=== PATIENT | female | born 1990 | race American Indian/Alaskan Native ===

== ENCOUNTER 2020-11-18 09:20 | Emergency (ER) | payer MEDICAID ==
[2020-11-18 10:11] VITALS: BP 142/91
--- NOTE | 2020-11-18 11:11 | Emergency Department Report ---
ED General Adult HPI - General Chief complaint: Headache Stated complaint: HEADACHE/SORE THROAT Time Seen by Provider: 11/18/20 10:40 Source: patient Mode of arrival: Ambulatory Limitations: No Limitations - History of Present Illness Initial comments: This is a pleasant 30-year-old female presents the emergency department with a chief complaint of sore throat, right-sided headache, "it feels like I have strep throat.", Right ear pain, malaise and subjective fever. She reports she has had strep throat in the past and this feels similar. She denies any known past medical history, current medication use or known allergies to medications. She denies any sick contacts, recent travel or immobilization. She denies associated chills, dizziness, blurry vision, nausea, vomiting, diarrhea, chest pain, shortness of breath, weakness, loss of taste or smell or any other associated symptoms. - Related Data Previous Rx's Medication Instructions Recorded Last Taken Type Amoxicillin [Trimox CAP] 500 mg PO Q8H #30 capsule 11/18/20 Unknown Rx Butalb/Acetaminophen/Caffeine 1 cap PO Q8HR PRN #12 cap 11/18/20 Unknown Rx [Fioricet 50-300-40 mg CAP] Nystas/Diphen/Xyl Visc/Mylanta 30 ml MM Q4H PRN #120 ml 11/18/20 Unknown Rx [Magic Mouthwash] Allergies Allergy/AdvReac Type Severity Reaction Status Date / Time No Known Allergies Allergy Unverified 11/18/20 10:07 ED Review of Systems ROS: Stated complaint: HEADACHE/SORE THROAT Other details as noted in HPI Comment: All other systems reviewed and negative Constitutional: denies: chills, fever Eyes: denies: eye pain, eye discharge, vision change ENT: as per HPI, throat pain. denies: ear pain Respiratory: denies: cough, shortness of breath, wheezing Cardiovascular: denies: chest pain, palpitations Endocrine: no symptoms reported Gastrointestinal: denies: abdominal pain, nausea, diarrhea Genitourinary: denies: urgency, dysuria, discharge Musculoskeletal: denies: back pain, joint swelling, arthralgia Skin: denies: rash, lesions Neurological: as per HPI, headache. denies: weakness, paresthesias Psychiatric: denies: anxiety, depression Hematological/Lymphatic: denies: easy bleeding, easy bruising ED Past Medical Hx - Past Medical History Previous Medical History?: Yes Additional medical history: hydrodenitis - Surgical History Past Surgical History?: Yes Additional Surgical History: Oral surgery, - Social History Smoking Status: Never Smoker Substance Use Type: None - Medications Home Medications: Home Medications Medication Instructions Recorded Confirmed Last Taken Type Amoxicillin [Trimox CAP] 500 mg PO Q8H #30 capsule 11/18/20 Unknown Rx Butalb/Acetaminophen/Caffeine 1 cap PO Q8HR PRN #12 cap 11/18/20 Unknown Rx [Fioricet 50-300-40 mg CAP] Nystas/Diphen/Xyl Visc/Mylanta 30 ml MM Q4H PRN #120 ml 11/18/20 Unknown Rx [Magic Mouthwash] ED Physical Exam - General Limitations: No Limitations General appearance: alert, in no apparent distress - Head Head exam: Present: atraumatic, normocephalic - Eye Eye exam: Present: normal appearance, PERRL, EOMI Pupils: Present: normal accommodation - ENT ENT exam: Present: mucous membranes moist, TM's normal bilaterally. Absent: normal exam, normal orophraynx (Erythema to the posterior pharynx with bilateral tonsillar enlargement with exudate. No peritonsillar bulging, retropharyngeal bulging or tongue elevation.) - Neck Neck exam: Present: normal inspection, full ROM, other (No nuchal rigidity). Absent: tenderness, meningismus - Respiratory Respiratory exam: Present: normal lung sounds bilaterally. Absent: respiratory distress, wheezes, rales, rhonchi, stridor, chest wall tenderness - Cardiovascular Cardiovascular Exam: Present: regular rate, normal rhythm, normal heart sounds. Absent: systolic murmur, diastolic murmur, rubs, gallop - GI/Abdominal GI/Abdominal exam: Present: soft, normal bowel sounds. Absent: distended, tenderness, guarding, rebound, rigid - Extremities Exam Extremities exam: Present: normal inspection, full ROM, normal capillary refill. Absent: tenderness, calf tenderness (No posterior calf tenderness, negative Homans' sign bilaterally.) - Back Exam Back exam: Present: normal inspection, full ROM. Absent: tenderness, CVA tenderness (R), CVA tenderness (L) - Neurological Exam Neurological exam: Present: alert, oriented X3, CN II-XII intact, normal gait. Absent: motor sensory deficit - Psychiatric Psychiatric exam: Present: normal affect, normal mood - Skin Skin exam: Present: warm, dry, intact, normal color. Absent: rash ED Course Vital Signs 11/18/20 10:07 Temperature 98.8 F Pulse Rate 82 Respiratory 17 Rate Blood Pressure 142/91 O2 Sat by Pulse 100 Oximetry - Reevaluation(s) Reevaluation #1: 11/18/20 11:07 Patient is well-appearing. Centor criteria is 4 of 4+ for strep throat which I suspect is likely source of her symptoms. Due to her having the right-sided headache I did offer to work this up including CT scan, IV medications including IV fluids, Reglan and Benadryl however the patient politely declined stating she would prefer to go home with some oral medications and will follow up with her primary doctor. The patient's headache was gradual in onset over the past week and my suspicion for subarachnoid hemorrhage is low due to lack of sudden onset or thunderclap headache. I have a low suspicion for meningitis due to lack of meningismus or nuchal rigidity. Patient is well-appearing and all of her questions were answered. ED Medical Decision Making - Medical Decision Making Nontoxic well-appearing. Vital signs stable. Patient be treated empirically for strep throat. Offer work-up however completely declined regarding her headache. She verbalized understand the diagnosis, treatment plan and follow-up instructions all of her questions were answered. - Differential Diagnosis Migraine headache, sinusitis, strep throat, viral pharyngitis, COVID-19 Critical care attestation.: If time is entered above; I have spent that time in minutes in the direct care of this critically ill patient, excluding procedure time. ED Disposition Clinical Impression: Headache Qualifiers: Headache type: unspecified Headache chronicity pattern: acute headache Intractability: not intractable Qualified Code(s): R51.9 - Headache, unspecified Acute tonsillitis Qualifiers: Pharyngitis/tonsillitis etiology: unspecified etiology Qualified Code(s): J03.90 - Acute tonsillitis, unspecified Disposition: 01 HOME / SELF CARE / HOMELESS Is pt being admited?: No Condition: Stable Instructions: Tonsillitis Prescriptions: Butalb/Acetaminophen/Caffeine [Fioricet 50-300-40 mg CAP] 1 cap PO Q8HR PRN #12 cap PRN Reason: Headache Nystas/Diphen/Xyl Visc/Mylanta [Magic Mouthwash] 30 ml MM Q4H PRN #120 ml PRN Reason: Sore Throat Amoxicillin [Trimox CAP] 500 mg PO Q8H #30 capsule Referrals: STEVEN BAPTISTE MD [Staff Physician] - 3-5 Days Forms: Work/School Release Form(ED) Time of Disposition: 11:09
== END 2020-11-18 11:37 | disposition home or self-care (01) ==
LOC: ED 09:20
DX: R51.9 Headache, unspecified (principal); J03.90 Acute tonsillitis, unspecified
CPT/HCPCS: 99282